=== PATIENT | female | born 1955 | race Caucasian/White ===

== ENCOUNTER 2023-04-21 11:27 | Emergency (ER) | payer MEDICARE, OTHER, SELFPAY ==
[2023-04-21] VITALS (8 sets, daily range): BP systolic 151–188; BP diastolic 67–91; PULSE 70–82; RESP 15; TEMP 36.9; O2SAT 98–99; BMI 21.8
[2023-04-21] MEDS: ONDANSETRON 4 MG/2 ML INJ IV (11:43)
[2023-04-21 11:54] LABS: Add Manual Diff / Slide Review NO; Basophils Absolute Auto 0 /uL (0-100); Basophils Percent Auto 0.3 % (0-2); Eosinophils Absolute Auto 0 /uL (0-450); Hematocrit 39.1 % (36-46); Hemoglobin 13.6 g/dL (12.0-16.0); Lymphocytes Absolute Auto 800 /uL (1100-4500); Lymphocytes Percent Auto 9.2 % (25-40); Mean Corpuscular HGB Conc 34.7 % (30-36); Mean Corpuscular Hemoglobin 35.5 PG (26-34); Mean Corpuscular Volume 102.3 fL (80-100); Monocytes Absolute Auto 400 /uL (0-900); Monocytes Percent Auto 4.4 % (3-14); Neutrophils Absolute Auto 7400 /uL (1500-7000); Neutrophils Percent Auto 86.1 % (50-75); Platelet Count 229 X10^3/uL (150-400); Red Blood Cell Count 3.82 X10^6/uL (4.0-5.2); Red Cell Distribution Width 13.5 % (11.6-14.8); White Blood Cell Count 8.6 X10^3/uL (4.5-11.0)
[2023-04-21 12:20] LABS: Alanine Aminotransferase 15 IU/L (<35); Albumin 4.4 g/dL (3.5-5.0); Albumin Globulin Ratio 1.3 (1.0-2.8); Alkaline Phosphatase 37 U/L (38-126); Aspartate Aminotransferase 33 IU/L (14-36); BUN Creatinine Ratio 22.6 (6-22); Bilirubin Total 0.8 mg/dL (0.2-1.3); Blood Urea Nitrogen 14 mg/dL (7-17); Calcium 9.5 mg/dL (8.4-10.2); Carbon Dioxide 30 mmol/L (22-32); Chloride 96 mmol/L (98-107); Estimated Glomerular Filt Rate > 60 mL/min (>60); Globulin 3.4 g/dL (1.7-4.1); Glucose 109 mg/dL (80-110); HEMOLYSIS 31 (0-50); Potassium 3.1 mmol/L (3.4-5.1); Sodium 135 mmol/L (137-145); Total Protein 7.8 g/dL (6.3-8.2)
[2023-04-21 14:01] LABS: Lipase 95 U/L (23-300)
[2023-04-21] MEDS: SODIUM CHLORIDE 0.9% 1,000 ML 1000 ML IV (17:06)
--- NOTE | 2023-04-21 17:57 | PC.NURSE ---
Patient denies having any nausea or pain. She has not eaten and her family has not eaten all day. She wants to go home.
--- NOTE | 2023-04-21 18:10 | ED_ITS ---
HPI - Nausea/Vomiting/Diarrhea General Chief complaint: Nausea/Vomiting/Diarrhea Stated complaint: vomiting, shaking, high BP sent by [facility] Time Seen by Provider: 04/21/23 13:37 Source: patient Mode of arrival: Wheelchair History of Present Illness HPI Narrative: Patient is a 67-year-old female sent over from the walk-in clinic for evaluation of 2 days of vomiting, elevated blood pressure, shaking. She states she is had multiple bowel movements but it has not been diarrhea. No other sick contacts. No fevers. By the time I evaluated the patient she would received fluids and medications she states she was feeling much better. She was having some abdominal discomfort but she thinks it is from all the vomiting. Patient states that she felt well enough she would like to go home. Related Data Home Medications Medication Instructions Recorded Confirmed atorvastatin 40 mg tablet 40 mg PO DAILY 04/21/23 04/21/23 chlorthalidone 25 mg tablet 25 mg PO DAILY 04/21/23 04/21/23 duloxetine 60 mg capsule,delayed 60 mg PO DAILY 04/21/23 04/21/23 release losartan 50 mg tablet 50 mg PO DAILY 04/21/23 04/21/23 metoprolol succinate 50 mg mg PO 04/21/23 04/21/23 tablet,extended release 24 hr pregabalin 75 mg capsule 75 mg PO BID 04/21/23 04/21/23 tizanidine 2 mg tablet 2 - 4 mg PO Q8H PRN muscle spasm 04/21/23 04/21/23 Allergies Allergy/AdvReac Type Severity Reaction Status Date / Time lisinopril Allergy Verified 04/21/23 11:31 Review of Systems Constitutional Constitutional: Reports system reviewed and no additional complaints, except as documented Respiratory Respiratory: Reports system reviewed and no additional complaints, except as documented Gastrointestinal Gastrointestinal: Reports system reviewed and no additional complaints, except as documented Genitourinary Genitourinary: Reports system reviewed and no additional complaints, except as documented Integumentary/Breasts Skin/Breast: Reports system reviewed and no additional complaints, except as documented Patient History Social History Smoking Status: Former smoker Smoking Status: Former smoker alcohol intake frequency: 0-2 drinks per day Substance Use Type: marijuana Exam Initial Vital Signs Initial Vital Signs: Vital Signs Temperature 98.5 F 04/21/23 11:31 Pulse Rate 70 04/21/23 11:31 Respiratory Rate 15 04/21/23 11:31 Blood Pressure 174/91 H 04/21/23 11:31 Pulse Oximetry 98 04/21/23 11:31 Oxygen Delivery Method Room Air 04/21/23 11:31 GI Inspection: normal to inspection and non-distended Palpation: soft and No tender Skin General: no rashes or lesions noted Neuro General: patient alert, patient awake and moves all extremities Extrem General: capillary refill normal Course Orders Ordered: Discontinued Medications Sodium Chloride (Normal Saline 0.9%) 1,000 mls @ 1,000 mls/hr IV BOLUS ONE Stop: 04/21/23 14:44 Last Infusion: 04/21/23 17:56 Dose: 0 mls/hr Documented By: Admin: 04/21/23 17:06 Dose: 1,000 mls/hr Documented By: JUHI Ondansetron HCl (Ondansetron 4 Mg/2 Ml Inj) 4 mg IV NOW PRN PRN Reason: Nausea And Vomiting Last Admin: 04/21/23 11:43 Dose: 4 mg Documented By: JAIMIE Vital Signs Vital signs: Vital Signs - 8 hr 04/21/23 16:28 04/21/23 16:49 04/21/23 16:50 Pulse Rate 82 76 Blood Pressure 170/81 H 188/79 H Pulse Oximetry 99 98 Oxygen Delivery Method Room Air 04/21/23 16:50 04/21/23 17:00 04/21/23 17:00 Pulse Rate 76 72 Blood Pressure 173/77 H Pulse Oximetry 98 98 Oxygen Delivery Method 04/21/23 17:30 04/21/23 17:30 04/21/23 17:54 Pulse Rate 71 82 Blood Pressure 161/70 H Pulse Oximetry 98 99 Oxygen Delivery Method 04/21/23 17:54 04/21/23 18:00 04/21/23 18:00 Pulse Rate 80 Blood Pressure 162/74 H 151/67 H Pulse Oximetry 98 Oxygen Delivery Method MDM - Nausea/Vomiting/Diarrhea Lab Data Attestation: I reviewed the patient's lab results. 04/21/23 11:42 04/21/23 12:00 Labs: Lab Results 04/21/23 04/21/23 04/21/23 Range/Units 11:42 12:00 13:45 WBC 8.6 (4.5-11.0) X10^3/uL RBC 3.82 L (4.0-5.2) X10^6/uL Hgb 13.6 (12.0-16.0) g/dL Hct 39.1 (36-46) % MCV 102.3 H (80-100) fL MCH 35.5 H (26-34) PG MCHC 34.7 (30-36) % RDW 13.5 (11.6-14.8) % Plt Count 229 (150-400) X10^3/uL Neut % (Auto) 86.1 H (50-75) % Lymph % (Auto) 9.2 L (25-40) % [place] % (Auto) 4.4 (3-14) % Eos % (Auto) 0.0 L (2-4) % Baso % (Auto) 0.3 (0-2) % Neut # (Auto) 7400 H (8256-7454) /uL Lymph # (Auto) 800 L (9504-5867) /uL [place] # (Auto) 400 (0-900) /uL Eos # (Auto) 0 (0-450) /uL Baso # (Auto) 0 (0-100) /uL Sodium 135 L (137-145) mmol/L Potassium 3.1 L (3.4-5.1) mmol/L Chloride 96 L (98-107) mmol/L Carbon Dioxide 30 (22-32) mmol/L BUN 14 (7-17) mg/dL Creatinine 0.62 (0.52-1.04) mg/dL Estimated GFR > 60 (>60) mL/min BUN/Creatinine Ratio 22.6 H (6-22) Glucose 109 (80-110) mg/dL Calcium 9.5 (8.4-10.2) mg/dL Magnesium (1.6-2.3) mg/dL Total Bilirubin 0.8 (0.2-1.3) mg/dL AST 33 (14-36) IU/L ALT 15 (<35) IU/L Alkaline Phosphatase 37 L (38-126) U/L Total Protein 7.8 (6.3-8.2) g/dL Albumin 4.4 (3.5-5.0) g/dL Globulin 3.4 (1.7-4.1) g/dL Albumin/Globulin Ratio 1.3 (1.0-2.8) Lipase 95 (23-300) U/L 04/21/23 Range/Units 13:46 WBC (4.5-11.0) X10^3/uL RBC (4.0-5.2) X10^6/uL Hgb (12.0-16.0) g/dL Hct (36-46) % MCV (80-100) fL MCH (26-34) PG MCHC (30-36) % RDW (11.6-14.8) % Plt Count (150-400) X10^3/uL Neut % (Auto) (50-75) % Lymph % (Auto) (25-40) % [place] % (Auto) (3-14) % Eos % (Auto) (2-4) % Baso % (Auto) (0-2) % Neut # (Auto) (2681-7442) /uL Lymph # (Auto) (3927-9380) /uL [place] # (Auto) (0-900) /uL Eos # (Auto) (0-450) /uL Baso # (Auto) (0-100) /uL Sodium (137-145) mmol/L Potassium (3.4-5.1) mmol/L Chloride (98-107) mmol/L Carbon Dioxide (22-32) mmol/L BUN (7-17) mg/dL Creatinine (0.52-1.04) mg/dL Estimated GFR (>60) mL/min BUN/Creatinine Ratio (6-22) Glucose (80-110) mg/dL Calcium (8.4-10.2) mg/dL Magnesium 2.0 (1.6-2.3) mg/dL Total Bilirubin (0.2-1.3) mg/dL AST (14-36) IU/L ALT (<35) IU/L Alkaline Phosphatase (38-126) U/L Total Protein (6.3-8.2) g/dL Albumin (3.5-5.0) g/dL Globulin (1.7-4.1) g/dL Albumin/Globulin Ratio (1.0-2.8) Lipase (23-300) U/L MDM Narrative Medical decision making narrative: After medications and fluids here in the emergency department she states she was feeling much better and would like to be discharged home. She is a benign abdominal exam. Her labs are unremarkable. No indication for radiologic studies. Patient declined the offer for nausea medication. She was given return precautions. Discharge Plan Departure Patient Disposition: Home Clinical Impression: Vomiting Instructions: DI for Vomiting -- Adult Activity Restrictions/Additional Instructions: I do recommend a bland diet over the next couple days. Be sure that you take the rest of your medications as directed. Be sure that you stay as hydrated as possible. Return to the emergency department for new symptoms. Prescriptions: No Action duloxetine 60 mg capsule,delayed release(DR/EC) 60 mg PO DAILY chlorthalidone 25 mg tablet 25 mg PO DAILY losartan 50 mg tablet 50 mg PO DAILY atorvastatin 40 mg tablet 40 mg PO DAILY tizanidine 2 mg tablet 2 - 4 mg PO Q8H PRN (Reason: muscle spasm) metoprolol succinate 50 mg tablet extended release 24 hr PO pregabalin 75 mg capsule 75 mg PO BID Referrals: Miscellaneous,Doctor, MD [Primary Care Provider] - Stand Alone Forms: Patient Portal/API
== END 2023-04-21 18:18 | disposition home or self-care (01) ==
PROVIDERS: Emergency Medicine; Nurse Practitioner Critical Care Medicine; Emergency Provider Emergency Medicine
DX: R11.10 Vomiting, unspecified (principal); R10.9 Unspecified abdominal pain
CPT/HCPCS: 36415; 80053; 83690; 83735; 85025; 96361; 96374; 99284; J2405